=== PATIENT | female | born 1960 | race African-American/Black ===

== ENCOUNTER 2017-08-15 10:29 | Day surgery (SDC) | payer MEDICARE ==
[2017-08-14 12:05] VITALS: BMI 33.6
[2017-08-15] MEDS ORDERED: Fentanyl 100 MCG/2 ML VIAL ONE (12:45)
[2017-08-15] MEDS ORDERED: Midazolam HCl 2 mg/2 ml Vial ONE (12:45)
--- NOTE | 2017-08-15 15:03 | MRI ---
MRI OF LUMBAR SPINE: Date: 08-15-17 Comparison: None. History: Bilateral leg and back pain, lumbar stenosis. Technique: Multiplanar, multisequence MR imaging of the lumbar spine is provided without contrast. FINDINGS: There is a focal area of increased STIR signal involving the superior endplate of the L5 vertebral mary dy laterally on the left which could signify edema on the basis of mild fracture deformity or degener ative change. Alternatively, this could represent edema associated with an acute Schmorl's node given its appearance on sagittal T2 image 16. The sagittal STIR imaging demonstrates no additional focal a airam of osseous marrow edema. Assuming five lumbar type vertebral bodies, the conus medullaris terminates at the L1 level. T12-L1: Intervertebral disc height and signal intensity appears within normal limits with no signific ant central canal or neural foraminal stenosis. L1-2: There is disc space narrowing and disc desiccation. There is an annular tear in the left parace ntral region. There is a small disc protrusion with minimal superior migration in this region. This c auses no central canal or neural foraminal stenosis. L2-3: Mild bilateral facet hypertrophy with no central canal or neural foraminal stenosis. L3-4: Disc space narrowing, disc desiccation and mild disc bulge. Mild bilateral facet hypertrophy an d hypertrophy of the mentum flavum with small volume fluid within bilateral facet joints. No signific ant central canal or neural foraminal stenosis. L4-5: There is prominent bilateral facet hypertrophy with significant fluid within bilateral facet ryan ints. Ligamentum flavum hypertrophy noted bilaterally. There is disc desiccation. There is no signifi cant central canal or neural foraminal stenosis. L5-S1: Moderate bilateral facet hypertrophy noted, right greater than left. Fluid is seen within bila teral facet joints. There is no significant central canal or neural foraminal stenosis. Imaged retroperitoneal structures appear grossly unremarkable. IMPRESSION: 1. Focal area of edema seen within the superior endplate of the L5 vertebral body laterally on the le ft as above. This may represent a mild fracture deformity or an acute Schmorl's node with associated edema. 2. Fluid is seen within multilevel facet joints, which can signify instability. Flexion and extension imaging may thus be beneficial. 3. No high grade central canal or neural foraminal stenosis seen within the lumbar spine. POS: [facility]
== END 2017-08-15 14:50 | disposition home or self-care (01) ==
LOC: SDC/OP 10:29
PROVIDERS: ATTEND Nurse Practitioner Family
DX: M48.062 Spinal stenosis, lumbar region with neurogenic claudication (principal); I10 Essential (primary) hypertension; M06.9 Rheumatoid arthritis, unspecified; Z88.8 Allergy status to other drugs, medicaments and biological substances; Z88.5 Allergy status to narcotic agent; Z79.899 Other long term (current) drug therapy
CPT/HCPCS: 72148; J2250; J3010